=== PATIENT | female | born 1960 | race Caucasian/White ===

== ENCOUNTER 2017-02-12 23:29 | Emergency (ER) | payer OTHER ==
[2017-02-12] MEDS ORDERED: DIPH,PERTUS(ACELL)TETVAC-LF 0.5 ML VIAL IM ONE (23:53)
--- NOTE | 2017-02-13 00:05 | ED ---
General Adult HPI - General Chief complaint: Psychiatric Symptoms Stated complaint: Mental Health Time Seen by Provider: 02/12/17 23:50 Source: patient, EMS, RN notes reviewed Mode of arrival: EMS - History of Present Illness Initial comments: 56-year-old female presents for evaluation of suicide ideation and attempt. Patient has past medical history of depression, she's admits to drinking alcohol this evening, she cut her left wrist with a serrated steak knife. According to EMS there was approximately 2-300 mL of blood on scene. Patient has past medical history of hypertension. Patient denies any other injury. She denies any substance ingestion and suicide attempt. Patient does have a psychiatrist and therapist. She has never been admitted for psychiatric purposes before. She is complaining of pain in her left wrist, no other physical complaints. Patient's tetanus status is unknown. - Related Data Home Medications Medication Instructions Recorded Confirmed Butalbital/Aspirin/Caffeine 02/12/17 [Bazsnp-Plnaeme-Ubqtjmkn 50-325-40 mg] Docusate [Colace] 100 mg PO DAILY 02/12/17 02/12/17 Ergocalciferol (Vitamin D2) 50,000 unit PO 02/12/17 [Vitamin D2] Ferrous Sulfate [Iron] 325 mg PO 02/12/17 Venlafaxine HCl ER [Effexor Xr] 150 mg PO DAILY 02/12/17 02/12/17 amLODIPine [Norvasc] 10 mg PO DAILY 02/12/17 02/12/17 Allergies Allergy/AdvReac Type Severity Reaction Status Date / Time No Known Allergies Allergy Verified 02/12/17 23:41 Review of Systems ROS Statement: Those systems with pertinent positive or pertinent negative responses have been documented in the HPI. ROS Other: All systems not noted in ROS Statement are negative. Past Medical History Past Medical History: Hypertension Additional Past Medical History / Comment(s): migraines, anemia History of Any Multi-Drug Resistant Organisms: None Reported Past Surgical History: Hysterectomy, Orthopedic Surgery Additional Past Surgical History / Comment(s): ectopic . Past Psychological History: Depression Smoking Status: Current every day smoker Past Alcohol Use History: Occasional Past Drug Use History: None Reported General Exam General appearance: alert, in no apparent distress Head exam: Present: atraumatic, normocephalic Eye exam: Present: normal appearance, PERRL ENT exam: Present: normal exam Neck exam: Present: normal inspection. Absent: tenderness, meningismus Respiratory exam: Present: normal lung sounds bilaterally. Absent: respiratory distress Cardiovascular Exam: Present: regular rate, normal rhythm GI/Abdominal exam: Present: soft. Absent: distended, tenderness Extremities exam: Present: other (5 cm laceration on the palmar surface distal left forearm, palpable radial pulse, cap refill less than 1 second in all 5 digits, there is venous oozing, and multiple tendon laceration.) Neurological exam: Present: alert, oriented X3, CN II-XII intact. Absent: motor sensory deficit Psychiatric exam: Present: normal affect, normal mood Skin exam: Present: warm, dry Course Vital Signs 02/12/17 02/13/17 23:35 02:03 Temperature 97.3 F L Pulse Rate 60 72 Respiratory 16 18 Rate Blood Pressure 92/44 119/76 O2 Sat by Pulse 97 97 Oximetry Procedures - Laceration Laceration #1 Consent Obtained: verbal consent Time Out Performed: Yes Indication: laceration Site: upper extremity Description: linear, clean Depth: involves muscle layer, involves tendon Anesthetic Used: lidocaine 1% Anesthesia Technique: local infiltration Amount (mls): 3 Pre-repair: wound explored, irrigated extensively Type of Sutures: nylon Size of Sutures: 4-0 Number of Sutures: 3 Technique: simple, interrupted Patient Tolerated Procedure: well Additional Comments: Wound was loosely approximated with nylon suture, underlying tendons not repaired. Medical Decision Making - Medical Decision Making 56-year-old female presenting with suicide attempt and left forearm laceration with a steak knife. Initial evaluation, patient has a proximally 5 cm laceration on the palmar surface of the distal forearm, no underlying arterial injury, palpable radial pulse. There is multiple tendon injuries. Tendon injuries appear to be to the superficial flexor tendons. The proximal portion of the tendon is not visible on examination. Patient's tetanus is updated, she is given 1 g of Ancef. Skin is loosely approximated with nylon suture x 3. Dressing is applied and splint applied. Case is discussed with orthopedics Dr. Ernandez, he recommends transfer for hand surgery evaluation. Patient will be transferred to [facility] in [place] accepting doctor Dr. Cheng. Patient will also require psychiatric evaluation. Diagnosis: Suicide attempt, left distal forearm laceration with multiple tendon lacerations. - Lab Data Result diagrams: 02/13/17 02:38 12/31/17 02:38 Lab Results 02/13/17 02/13/17 02/13/17 Range/Units 02:00 02:38 02:38 WBC 9.6 (3.8-10.6) k/uL RBC 3.36 L (3.80-5.40) m/uL Hgb 11.3 L (11.4-16.0) gm/dL Hct 34.7 (34.0-46.0) % MCV 103.5 H (80.0-100.0) fL MCH 33.7 (25.0-35.0) pg MCHC 32.6 (31.0-37.0) g/dL RDW 12.7 (11.5-15.5) % Plt Count 177 (150-450) k/uL Neutrophils % 87 % Lymphocytes % 8 % Monocytes % 3 % Eosinophils % 0 % Basophils % 0 % Neutrophils # 8.4 H (1.3-7.7) k/uL Lymphocytes # 0.8 L (1.0-4.8) k/uL Monocytes # 0.3 (0-1.0) k/uL Eosinophils # 0.0 (0-0.7) k/uL Basophils # 0.0 (0-0.2) k/uL Macrocytosis Slight PT (9.0-12.0) sec INR (<1.2) APTT (22.0-30.0) sec Sodium 137 (137-145) mmol/L Potassium 4.3 (3.5-5.1) mmol/L Chloride 104 (98-107) mmol/L Carbon Dioxide 27 (22-30) mmol/L Anion Gap 6 mmol/L BUN 12 (7-17) mg/dL Creatinine 0.70 (0.52-1.04) mg/dL Est GFR (MDRD) Af Amer >60 (>60 ml/min/1.73 sqM) Est GFR (MDRD) Non-Af >60 (>60 ml/min/1.73 sqM) Glucose 111 H (74-99) mg/dL Calcium 9.1 (8.4-10.2) mg/dL Total Bilirubin <0.1 L (0.2-1.3) mg/dL AST 35 (14-36) U/L ALT 45 (9-52) U/L Alkaline Phosphatase 74 (38-126) U/L Total Protein 5.7 L (6.3-8.2) g/dL Albumin 3.5 (3.5-5.0) g/dL Urine Opiates Screen Not Detected (NotDetected) Ur Oxycodone Screen Not Detected (NotDetected) Urine Methadone Screen Not Detected (NotDetected) Ur Propoxyphene Screen Not Detected (NotDetected) Ur Barbiturates Screen Detected H (NotDetected) U Tricyclic Antidepress Not Detected (NotDetected) Ur Phencyclidine Scrn Not Detected (NotDetected) Ur Amphetamines Screen Not Detected (NotDetected) U Methamphetamines Scrn Not Detected (NotDetected) U Benzodiazepines Scrn Not Detected (NotDetected) Urine Cocaine Screen Not Detected (NotDetected) U Marijuana (THC) Screen Not Detected (NotDetected) 02/13/17 Range/Units 02:38 WBC (3.8-10.6) k/uL RBC (3.80-5.40) m/uL Hgb (11.4-16.0) gm/dL Hct (34.0-46.0) % MCV (80.0-100.0) fL MCH (25.0-35.0) pg MCHC (31.0-37.0) g/dL RDW (11.5-15.5) % Plt Count (150-450) k/uL Neutrophils % % Lymphocytes % % Monocytes % % Eosinophils % % Basophils % % Neutrophils # (1.3-7.7) k/uL Lymphocytes # (1.0-4.8) k/uL Monocytes # (0-1.0) k/uL Eosinophils # (0-0.7) k/uL Basophils # (0-0.2) k/uL Macrocytosis PT 10.5 (9.0-12.0) sec INR 1.1 (<1.2) APTT 21.5 L (22.0-30.0) sec Sodium (137-145) mmol/L Potassium (3.5-5.1) mmol/L Chloride (98-107) mmol/L Carbon Dioxide (22-30) mmol/L Anion Gap mmol/L BUN (7-17) mg/dL Creatinine (0.52-1.04) mg/dL Est GFR (MDRD) Af Amer (>60 ml/min/1.73 sqM) Est GFR (MDRD) Non-Af (>60 ml/min/1.73 sqM) Glucose (74-99) mg/dL Calcium (8.4-10.2) mg/dL Total Bilirubin (0.2-1.3) mg/dL AST (14-36) U/L ALT (9-52) U/L Alkaline Phosphatase (38-126) U/L Total Protein (6.3-8.2) g/dL Albumin (3.5-5.0) g/dL Urine Opiates Screen (NotDetected) Ur Oxycodone Screen (NotDetected) Urine Methadone Screen (NotDetected) Ur Propoxyphene Screen (NotDetected) Ur Barbiturates Screen (NotDetected) U Tricyclic Antidepress (NotDetected) Ur Phencyclidine Scrn (NotDetected) Ur Amphetamines Screen (NotDetected) U Methamphetamines Scrn (NotDetected) U Benzodiazepines Scrn (NotDetected) Urine Cocaine Screen (NotDetected) U Marijuana (THC) Screen (NotDetected) Disposition Clinical Impression: Depression, Attempted suicide, Forearm laceration involving tendon Disposition: OTHER INSTITUTION NOT DEFINED Condition: Stable Referrals: Jt Kennedy DO [Primary Care Provider] - 1-2 days Time of Disposition: 03:20 - Out of Hospital Transfer - Req. Specs Out of Hospital Transfer - Requested Specifics: Other Emergency Center ( Transferred to [facility] in [place].)
[2017-02-13] MEDS ORDERED: DIPH,PERTUS(ACELL)TETVAC-LF 0.5 ML VIAL IM ONE (00:22)
[2017-02-13] MEDS ORDERED: ceFAZolin 1,000 MG in DEXTROSE/WATER 1 50ML.BAG IVPB STA (01:15)
[2017-02-13] MEDS ORDERED: KETOROLAC 30 MG/ML 1 ML VIAL IVP STA (02:01)
[2017-02-13 02:17] LABS: Amphetamine Screen,Urine Not Detected (NotDetected); Barbiturate Screen,Urine Detected (NotDetected); Benzodiazepines Screen,Urine Not Detected (NotDetected); Cocaine Screen,Urine Not Detected (NotDetected); Methadone Screen, Urine Not Detected (NotDetected); Opiate Screen,Urine Not Detected (NotDetected); Oxycodone Screen, Urine Not Detected (NotDetected); Phencyclidine Screen,Urine Not Detected (NotDetected); Tricyclic Antidepressant,Urine Not Detected (NotDetected); Urn Cannabinoid Scrn Not Detected (NotDetected)
[2017-02-13 02:51] LABS: Basophils % (A) 0 %; Eosinophils % (A) 0 %; HCT 34.7 % (34.0-46.0); HGB 11.3 gm/dL (11.4-16.0); Lymphocytes # (A) 0.8 k/uL (1.0-4.8); Lymphocytes % (A) 8 %; MCH 33.7 pg (25.0-35.0); MCHC 32.6 g/dL (31.0-37.0); MCV 103.5 fL (80.0-100.0); Macrocytosis Slight; Monocytes # (A) 0.3 k/uL (0-1.0); Monocytes % (A) 3 %; Neutrophils # (A) 8.4 k/uL (1.3-7.7); Neutrophils % (A) 87 %; Platelet Count 177 k/uL (150-450); RBC 3.36 m/uL (3.80-5.40); RDW 12.7 % (11.5-15.5); WBC 9.6 k/uL (3.8-10.6)
[2017-02-13 02:55] LABS: INR 1.1 (<1.2); Prothrombin Time 10.5 sec (9.0-12.0)
[2017-02-13 03:05] LABS: Partial Thromboplastin Time 21.5 sec (22.0-30.0)
[2017-02-13 03:21] LABS: ALT 45 U/L (9-52); AST 35 U/L (14-36); Albumin 3.5 g/dL (3.5-5.0); Alkaline Phosphatase 74 U/L (38-126); Anion Gap 6 mmol/L; Blood Urea Nitrogen 12 mg/dL (7-17); Calcium 9.1 mg/dL (8.4-10.2); Carbon Dioxide 27 mmol/L (22-30); Chloride 104 mmol/L (98-107); Glucose 111 mg/dL (74-99); Sodium 137 mmol/L (137-145); Total Bilirubin <0.1 mg/dL (0.2-1.3); Total Protein 5.7 g/dL (6.3-8.2)
[2017-02-13 03:41] LABS: Potassium 4.3 mmol/L (3.5-5.1)
[2017-02-13 03:49] VITALS: BP 117/68; PULSE 73; RESP 16; TEMP 97.9
== END 2017-02-13 04:13 | disposition other institution (70) ==
LOC: EC 23:29
DX: S51.812A Laceration without foreign body of left forearm, initial encounter (principal); F32.9 Major depressive disorder, single episode, unspecified; R45.851 Suicidal ideations; I10 Essential (primary) hypertension; F17.200 Nicotine dependence, unspecified, uncomplicated; Z79.899 Other long term (current) drug therapy; Z23 Encounter for immunization; X78.1XXA Intentional self-harm by knife, initial encounter
CPT/HCPCS: 99285; 12002; 96365; 96375; 90471; 82075; 36415; 80053; 85025; 85610; 85730; 80306; 90715; J1885; J0690

== ENCOUNTER 2017-02-13 18:20 | Inpatient (IN) | payer OTHER ==
--- NOTE | 2017-02-13 19:09 | ED ---
Psych HPI - General Chief Complaint: Psychiatric Symptoms Stated Complaint: Mental health Time Seen by Provider: 02/13/17 18:27 Source: patient Mode of arrival: ambulatory - History of Present Illness Initial Comments: This is a 56-year-old female with a history of depression who presents emergency Department after being discharged from [facility]. The patient presented here last night because of suicidal ideation attempting to slit her wrists. She was admitted here in to the psychiatric unit however and decided this morning to have her sent to [facility] for repair of tendons in her wrist. The patient was discharged after having a pair. The family did not feel that she was safe to be at home since they brought her back here. The patient currently denies any suicidal ideation. She reports that she was evaluated by psychiatry at [facility] however the family member at bedside does not believe this. Patient has no physical complaints except for a sore wrist. - Related Data Home Medications Medication Instructions Recorded Confirmed Docusate [Colace] 100 mg PO BID PRN 02/13/17 02/13/17 Ergocalciferol [Vitamin D2] 50,000 unit PO Q7D 02/13/17 02/13/17 Ferrous Sulfate [Feosol] 325 mg PO DAILY 02/13/17 02/13/17 Venlafaxine HCl [Effexor XR] 150 mg PO DAILY 02/13/17 02/13/17 amLODIPine [Norvasc] 10 mg PO DAILY 02/13/17 02/13/17 Allergies Allergy/AdvReac Type Severity Reaction Status Date / Time No Known Allergies Allergy Verified 02/13/17 19:07 Review of Systems ROS Statement: Those systems with pertinent positive or pertinent negative responses have been documented in the HPI. ROS Other: All systems not noted in ROS Statement are negative. Past Medical History Past Medical History: Hypertension Additional Past Medical History / Comment(s): migraines History of Any Multi-Drug Resistant Organisms: None Reported Past Surgical History: Hysterectomy, Tubal Ligation Past Psychological History: Anxiety, Depression Smoking Status: Current every day smoker Past Alcohol Use History: Occasional Past Drug Use History: None Reported General Exam - General Exam Comments Initial Comments: Constitutional: Awake alert Appears comfortable Head: Normocephalic atraumatic Eyes: no conjunctival injection No scleral icterus EOMI Neck: No JVD Supple Heart: Regular rate rhythm normal S1-S2 no murmurs Lungs: Clear to auscultation bilaterally No wheezing No rales Abdomen: Soft nondistended nontender Extremities: Non edematous DP pulses intact Radial pulses intact bandage clean dry and intact to the left wrist Neuro: A&Ox3 No focal neurologic deficits Psych: Appropriate mood and affect Limitations: no limitations Course Vital Signs 02/13/17 18:27 Temperature 98.7 F Pulse Rate 73 Respiratory 18 Rate Blood Pressure 158/88 O2 Sat by Pulse 100 Oximetry Medical Decision Making - Medical Decision Making This 56-year-old female who presents emergency Department after slitting her wrists the day prior. Patient was evaluated by EPS and deemed to be required to have inpatient psychiatric treatment. The patient is currently medically stable for admission. Admission orders per EPS. - Lab Data Lab Results 02/13/17 Range/Units 19:54 Urine Color Light Yellow Urine Appearance Clear (Clear) Urine pH 5.5 (5.0-8.0) Ur Specific [place] 1.010 (1.001-1.035) Urine Protein Negative (Negative) Urine Glucose (UA) Negative (Negative) Urine Ketones Trace H (Negative) Urine Blood Negative (Negative) Urine Nitrite Negative (Negative) Urine Bilirubin Negative (Negative) Urine Urobilinogen <2.0 (<2.0) mg/dL Ur Leukocyte Esterase Negative (Negative) Urine Opiates Screen Detected H (NotDetected) Ur Oxycodone Screen Not Detected (NotDetected) Urine Methadone Screen Not Detected (NotDetected) Ur Propoxyphene Screen Not Detected (NotDetected) Ur Barbiturates Screen Detected H (NotDetected) U Tricyclic Antidepress Not Detected (NotDetected) Ur Phencyclidine Scrn Not Detected (NotDetected) Ur Amphetamines Screen Not Detected (NotDetected) U Methamphetamines Scrn Not Detected (NotDetected) U Benzodiazepines Scrn Not Detected (NotDetected) Urine Cocaine Screen Not Detected (NotDetected) U Marijuana (THC) Screen Not Detected (NotDetected) Disposition Clinical Impression: Attempted suicide Disposition: ADMITTED IP TO THIS [facility] Condition: Stable
[2017-02-13] MEDS ORDERED: HYDROcodone/APAP 5-325MG 1 EACH TAB PO STA (20:05)
[2017-02-13 20:10] LABS: Appearance,Urine Clear (Clear); Bilirubin,Urine Negative (Negative); Blood,Urine Negative (Negative); Color,Urine Light Yellow; Glucose,Urine (UA) Negative (Negative); Ketones,Urine Trace (Negative); Leukocyte Esterase,Urine Negative (Negative); Nitrite,Urine Negative (Negative); PH, Urine 5.5 (5.0-8.0); Protein,Urine Negative (Negative); Urobilinogen,Urine <2.0 mg/dL (<2.0)
[2017-02-13 20:29] LABS: Amphetamine Screen,Urine Not Detected (NotDetected); Barbiturate Screen,Urine Detected (NotDetected); Benzodiazepines Screen,Urine Not Detected (NotDetected); Cocaine Screen,Urine Not Detected (NotDetected); Methadone Screen, Urine Not Detected (NotDetected); Opiate Screen,Urine Detected (NotDetected); Oxycodone Screen, Urine Not Detected (NotDetected); Phencyclidine Screen,Urine Not Detected (NotDetected); Tricyclic Antidepressant,Urine Not Detected (NotDetected); Urn Cannabinoid Scrn Not Detected (NotDetected)
[2017-02-13] MEDS ORDERED: CEPHALEXIN 250 MG CAP PO STA (20:46)
[2017-02-13] MEDS ORDERED: MAGNESIUM HYDROXIDE 2,400 MG/10 ML CUP PO PRN (22:44)
[2017-02-13] MEDS ORDERED: ACETAMINOPHEN TAB 325 MG TAB PO PRN (22:44)
[2017-02-13] MEDS ORDERED: MAG HYDROX/AL HYDROX/SIMETH 30 ML CUP PO PRN (22:44)
[2017-02-13] MEDS ORDERED: DOCUSATE 100 MG CAP PO PRN (22:47)
[2017-02-14] MEDS: LORazepam 1 MG TAB PO PRN (04:51)
[2017-02-14 07:51] LABS: Basophils % (A) 0 %; Eosinophils # (A) 0.2 k/uL (0-0.7); Eosinophils % (A) 3 %; HCT 33.7 % (34.0-46.0); HGB 10.9 gm/dL (11.4-16.0); Lymphocytes # (A) 0.9 k/uL (1.0-4.8); Lymphocytes % (A) 17 %; MCH 33.8 pg (25.0-35.0); MCHC 32.3 g/dL (31.0-37.0); MCV 104.6 fL (80.0-100.0); Macrocytosis Slight; Mean Platelet Volume 7.1; Monocytes # (A) 0.2 k/uL (0-1.0); Monocytes % (A) 4 %; Neutrophils % (A) 74 %; Platelet Count 163 k/uL (150-450); RBC 3.22 m/uL (3.80-5.40); WBC 5.4 k/uL (3.8-10.6)
[2017-02-14 08:43] LABS: Anion Gap 3 mmol/L; Blood Urea Nitrogen 10 mg/dL (7-17); Calcium 9.9 mg/dL (8.4-10.2); Carbon Dioxide 29 mmol/L (22-30); Chloride 107 mmol/L (98-107); Cholesterol 193 mg/dL (<200); Glucose 98 mg/dL (74-99); HDL Cholesterol 83 mg/dL (40-60); LDL Cholesterol,Calculated 89 mg/dL (0-99); Potassium 4.2 mmol/L (3.5-5.1); Sodium 139 mmol/L (137-145); Triglycerides 106 mg/dL (<150)
[2017-02-14] MEDS ORDERED: VENLAFAXINE HCL ER 150 MG CAP PO SCH (09:00)
[2017-02-14] MEDS: amLODIPine 10 MG TAB PO SCH (09:29)
[2017-02-14] MEDS: NICOTINE 14MG/24HR PATCH TRANSDERM SCH (09:30)
[2017-02-14] MEDS ORDERED: VENLAFAXINE HCL ER 75 MG CAP PO STA (10:38)
[2017-02-14] MEDS: FERROUS SULFATE 325 MG TAB PO SCH (10:43)
[2017-02-14] MEDS: CEPHALEXIN 250 MG CAP PO SCH ×4 (10:43→21:28)
[2017-02-14] MEDS: HYDROcodone/APAP 5-325MG 1 EACH TAB PO PRN ×2 (13:35→22:14)
[2017-02-14 18:00] LABS: Hemoglobin A1C 5.1 % (4.0-6.0)
--- NOTE | 2017-02-15 08:31 | HP ---
HISTORY AND PHYSICAL DATE OF SERVICE: 02/14/2017 IDENTIFYING DATA: The patient is a 56-year-old female. She lives independently. She was admitted through the emergency room. CHIEF COMPLAINT: The patient was depressed. She apparently had made some indication of thoughts of killing herself. She had acting-out behavior of cutting her left wrist quite deeply. HISTORY OF PRESENT ILLNESS: The patient has not had a prior psychiatric hospitalization. She said that she got into quite a bit of distress over a situation with her significant other. The two of them had been together for 3 years. He was indicating planning to end the relationship. They made a determination in October based on what he said that the relationship had ended. They continue to live together until just recently. The patient said that she had an impulse of feeling very distressed and wanting to take out anger on this person. She said on the spur of the moment she took a sharp knife and cut her left wrist, apparently down to tendons. She ended up having a transfer to [facility] for surgery. Apparently she had received psychiatric evaluation there with recommendation for outpatient follow up. Her daughter was concerned about her level of depression and brought her to the hospital. The patient acknowledges that she has had down mood and distress going back to October in terms of this relationship. She said some of the issue has been complicated by the business yet that she has had to attend to. She has 2 horses, which she has had for a number of years. The horses were at the home that she was living at. She has had to make arrangements to sell the horses, which was very difficult for her. She has just found a place to live and has moved into an apartment. 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 In addition, she acknowledges grief issues in that this is the first anniversary of her mother's passing. Her mother around 2015. She has been on Effexor XR 150 mg for "a couple years". She says it was prescribed for migraines. She said she really has not recognized any history of depression in her past. She notes that she has had migraines over 20 years and that in a neurologic evaluation, it was recommended that the trial of the Effexor was recommended. She says that currently she has been sleeping fairly well. She has been in counseling intermittently by Doreen in a community center. She has not had any other past mental health intervention. She acknowledges that she likely has some depression relating to the events, though she feels overall that she is functioning fairly well in spite of some of the stress she is under. Currently, her only psychotropic medication is Effexor XR 150 mg a day. She is admitted for further evaluation. SUBSTANCE USE HISTORY: Unremarkable by patient report. PAST MEDICAL HISTORY: Patient currently has a left forearm laceration with surgical repair that is a current issue. She has a history of migraine headaches and hypertension. Further medical history and review of systems as per medical consultation. FAMILY AND SOCIAL HISTORY: The patient notes that she works part-time in an office of an senior electrical designer. She was for over 30 years and in 2013. She said the basis of the divorce was that she and her were very busy with different lives and they were not able to maintain a solid relationship. She has 2 children, ages 37 and 24, both within the marriage she had. As noted, she has had long-term involvement in having horses for trail riding, though she is a currently needing to sell the horses because of her ending a relationship. PHYSICAL EXAM: As per medical consultation. MENTAL STATUS EXAM: Patient was somewhat restless. She gave good eye contact. Thoughts were clear. She answered questions with direct responses. She was somewhat spontaneous and interactive. Her affect was blunted. Her mood reserved. She did show some appropriate emotional reactivity. She was cooperative in the interview. She had a somewhat down mood, though she did not appear to be significantly distressed. There was no indication of thought disorder. On cognitive exam, she was oriented x3 and alert. Recent remote memory was intact. Attention and concentration fair. She could spell world forward and backwards. She did adequate calculations. Insight and judgment were fair. Fund of knowledge and intellectual level average. ASSESSMENT: This 56-year-old female is diagnosed with major depression. She has a number of ongoing stress issues including a recent breakup of a relationship and relocation. She has also had to deal with some significant complications of the separation. Strengths include that she has had fairly good independent functioning and has been able to maintain a stable life style. Weakness includes struggles with underlying emotional function. DIAGNOSES: 1. Major depression. 2. Self-inflicted wound to left wrist. 3. Hypertension. 4. Migraine headaches. RECOMMENDATIONS: Patient will be admitted for comprehensive medical psychiatric and psychosocial evaluation. We will engage the patient in individual and group therapeutic activities. I discussed treatment options with the patient. At this point, she is willing to give a trial of an increase in Effexor, will go up to 225 mg a day. Effexor is her only psychotropic medication. We will focus on stabilization and discharge planning. CLARISSA / LAKESHIA: [id number] /
--- NOTE | 2017-02-15 08:52 | CONS ---
CONSULTATION DATE OF CONSULTATION: 02/14/2017 REASON FOR CONSULTATION: Advice regarding hypertension, migraine, anxiety requested by Psychiatry. HISTORY OF PRESENT ILLNESS: This is a 56-year-old woman with a past medical history of hypertension, migraine, anxiety, depression admitted for psychiatric evaluation. Patient has self-inflicted wound on the left wrist which was sutured. The patient also had a fracture on the right hand which a cast was applied and now the patient is on splint. There is no history of any fever, rigors or chills. No history of headache, loss of conscious or seizures. The patient has been to [facility] previously. PAST MEDICAL HISTORY: Hypertension, migraines, hysterectomy, anxiety, depression. MEDICATIONS: Prior to admission include: 1. Norvasc 10 mg. 2. Colace 100 mg b.i.d. 3. Effexor XR 150 mg b.i.d. 4. Aspirin 320 mg daily. 5. Vitamin D2 2000 q7 days. ALLERGIES: None. FAMILY HISTORY: No history of heart disease or strokes in the family. SOCIAL HISTORY: History of smoking every day. No history of alcohol intake. REVIEW OF SYSTEMS: ENT: No diminished hearing or vision. Cardiovascular: No angina. Respiration: No cough. GI no nausea. no dysuria. Nervous systems: No numbness, weakness. Musculoskeletal: As mentioned earlier. [id number]/Oncology: No history of anemia. Endocrine: No history of diabetes or hypothyroidism. Constitutional: As mentioned earlier. Dermatology: Negative. Rheumatology: Negative. Psychiatric: As mentioned earlier. PHYSICAL EXAMINATION: Alert and oriented x3. Pulse 81, blood pressure 168/70, temperature 98.2, pulse ox 98% on room air. HEENT: Conjunctivae normal. Oral mucosa moist. Neck is no jugular venous distention. No carotid bruit. No lymph node enlargement. Cardiovascular: S1, S2 normal. No S3, no S4. RESPIRATORY: Breath sounds diminished in the bases. No rhonchi and no crackles. ABDOMEN: Soft, nontender. No mass palpable. Legs: No edema and no swelling. NERVOUS SYSTEM: Higher functions as mentioned. Cranial 2nd to 12 grossly intact. Moves all 4 limbs. No focal motor deficits. Lymphatics: No lymph nodes palpable in the neck, axillae or groin. Skin: Skin lacerations which was sutured on the left forearm status post splint on the right hand as mentioned. Gait normal. LABS: WBC 5, hemoglobin 10.9, UA noted and drug screen noted. ASSESSMENT: 1. Status post left lacerated wound on the left forearm status post suturing. 2. Anemia macrocytic for evaluation. 3. Hypertension. 4. Migraine. 5. History of anxiety, depression. 6. History nicotine dependence. RECOMMENDATIONS AND DISCUSSION: In this 56-year-old woman who presented with multiple medical issues, at this time I recommend to continue current medications, management and symptomatic and recommend resume the home medications and I would also recommend local care for the wound. The wound appears to be healthy at this time, I would recommend suture removal after 10 days. Closely follow with the primary physician with a followup CBC. We will follow the patient closely. Thank you Dr. Flores for letting us participate in the care of this patient. CLARISSA / LAKESHIA: [id number] /
[2017-02-15] MEDS: CEPHALEXIN 250 MG CAP PO SCH ×4 (08:56→21:24)
[2017-02-15] MEDS: VENLAFAXINE HCL ER 75 MG CAP PO SCH (08:56)
[2017-02-15] MEDS: amLODIPine 10 MG TAB PO SCH (08:56)
[2017-02-15] MEDS: NICOTINE 14MG/24HR PATCH TRANSDERM SCH (08:56)
[2017-02-15] MEDS: HYDROcodone/APAP 5-325MG 1 EACH TAB PO PRN ×2 (08:56→17:13)
[2017-02-15] MEDS: IBUPROFEN 600 MG TAB PO PRN (10:53)
[2017-02-15] MEDS: FERROUS SULFATE 325 MG TAB PO SCH (12:34)
--- NOTE | 2017-02-15 18:23 | P.PN ---
Progress Note - Text Date of service: 02/15/2017 Chief complaint: "I'm still crying " Subjective: The patient has been seen today as follow-up, chart reviewed, case discussed with the treatment team. Patient slept about more than 6 hours last night. Patient has been intermittently going to groups and other unit activities. Patient reports fair appetite problems. Patient reported still has crying spells, and feeling emotionally overwhelmed with flush of emotions. She addressed for feeling guilt about what she did to herself. Generally she tried to minimize depression and anxiety symptoms but apparently she is very evasive about her depression and anxiety symptoms. She denies having any hallucination or psychotic symptoms, and she denies any manic symptoms. She denies any suicidal or homicidal thoughts. The patient is compliant with her medications and denies any adverse reactions. Review of other systems: Patient denies any physical symptoms besides what has been mentioned above. No breathing problems, no chest pain reported today. Objective: Vitals has been reviewed. Mental status examination; Appearance: The patient appears stated age, adequately groomed and dressed, bandage around her left wrist. Gait/posture: Normal gait, Normal arm swinging: No abnormal movements. Attitude and behavior: Guarded, superficial, with intermittent eye contact. Motor activity: Normal psychomotor activity Speech: Soft and slow Mood: Anxious Affect: Constricted Thought form: goal-directed, linear, coherent. Thought content: Non-delusional, denies suicidal thoughts, denies homicidal thoughts, denies intentions or plans. Perception: Denies any auditory or visual hallucinations Attention: No impairment. Patient was able to repeat serial 5. Orientation: Patient patient was fully oriented to time place person and situation. Insight: Patient has limited insight about his psychiatric disorder. Judgment: Patient has limited judgment about his psychiatric treatment. Assessment: Unspecified depression Rule out major depressive disorder, severe without psychotic features Plan: Continue with inpatient psychiatric hospitalization for monitoring and continue treatment. Continue group therapy and other unit activities. Continue psychiatric medications: Continue Effexor as an antidepressant
[2017-02-15] MEDS: LORazepam 1 MG TAB PO PRN (21:24)
[2017-02-16] MEDS: CEPHALEXIN 250 MG CAP PO SCH ×4 (08:13→21:26)
[2017-02-16] MEDS: VENLAFAXINE HCL ER 75 MG CAP PO SCH (08:13)
[2017-02-16] MEDS: amLODIPine 10 MG TAB PO SCH (08:13)
[2017-02-16] MEDS: NICOTINE 14MG/24HR PATCH TRANSDERM SCH (08:15)
[2017-02-16] MEDS: HYDROcodone/APAP 5-325MG 1 EACH TAB PO PRN ×2 (09:45→18:38)
[2017-02-16] MEDS: FERROUS SULFATE 325 MG TAB PO SCH (12:01)
--- NOTE | 2017-02-16 15:54 | P.PN ---
Progress Note - Text Date of service: 02/16/2017 Chief complaint: "I'm feeling better " Subjective: The patient has been seen today as follow-up, chart reviewed, case discussed with the treatment team. Patient slept about [place] and 8 hours last night. Patient has been going to groups and other unit activities. Patient reports fair appetite problems. Patient reported feeling more stability in regarding her mood and he denies depression symptoms. She reported has been learning a lot from the groups and develop more coping skills. She minimizes anxiety and denies any suicidal or homicidal thoughts. Patient denies any psychotic or manic symptoms. Patient stated that she is planning to continue counseling and therapy after discharge. The patient is compliant with her medications and denies any adverse reactions. Review of other systems: Patient denies any physical symptoms besides what has been mentioned above. No breathing problems, no chest pain reported today. Objective: Vitals has been reviewed. Mental status examination; Appearance: The patient appears stated age, adequately groomed and dressed, bandage around her left wrist. Gait/posture: Normal gait, Normal arm swinging: No abnormal movements. Attitude and behavior: Guarded, superficial, with intermittent eye contact. Motor activity: Normal psychomotor activity Speech: Soft and slow Mood: Anxious Affect: Constricted Thought form: goal-directed, linear, coherent. Thought content: Non-delusional, denies suicidal thoughts, denies homicidal thoughts, denies intentions or plans. Perception: Denies any auditory or visual hallucinations Attention: No impairment. Patient was able to repeat serial 5. Orientation: Patient patient was fully oriented to time place person and situation. Insight: Patient has limited insight about his psychiatric disorder. Judgment: Patient has limited judgment about his psychiatric treatment. Assessment: Unspecified depression Rule out major depressive disorder, severe without psychotic features Plan: Continue with inpatient psychiatric hospitalization for monitoring and continue treatment. Continue group therapy and other unit activities. Continue psychiatric medications: Effexor for depression and anxiety symptoms
[2017-02-16] MEDS: LORazepam 1 MG TAB PO PRN (21:27)
[2017-02-17] MEDS: VENLAFAXINE HCL ER 75 MG CAP PO SCH (08:20)
[2017-02-17] MEDS: amLODIPine 10 MG TAB PO SCH (08:20)
[2017-02-17] MEDS: NICOTINE 14MG/24HR PATCH TRANSDERM SCH (08:20)
[2017-02-17] MEDS: CEPHALEXIN 250 MG CAP PO SCH ×4 (08:20→21:36)
[2017-02-17] MEDS: HYDROcodone/APAP 5-325MG 1 EACH TAB PO PRN ×2 (08:58→20:21)
[2017-02-17] MEDS: LORazepam 1 MG TAB PO PRN ×2 (10:30→17:41)
[2017-02-17] MEDS: FERROUS SULFATE 325 MG TAB PO SCH (12:45)
--- NOTE | 2017-02-17 13:28 | P.PN ---
Progress Note - Text Date of service: 02/17/2017 Chief complaint: "I'm feeling very good " Subjective: The patient has been seen today as follow-up, chart reviewed, case discussed with the treatment team. Patient slept about more than 8 hours last night. Patient has been going to groups and other unit activities. Patient reports fair appetite problems. The patient reported has been feeling more improvement with clear mind and he denies any suicidal or homicidal thoughts. She denies depression and he greatly minimized and anxiety. She denies any manic or psychotic symptoms. She reported feeling ready to move on and continue her treatment as an outpatient. We discussed discharge tomorrow. The patient is compliant with her medications and denies any adverse reactions. Review of other systems: Patient denies any physical symptoms besides what has been mentioned above. No breathing problems, no chest pain reported today. Objective: Vitals has been reviewed. Mental status examination; Appearance: The patient appears stated age, adequately groomed and dressed, bandage around her left wrist. Gait/posture: Normal gait, Normal arm swinging: No abnormal movements. Attitude and behavior: Guarded, superficial, with intermittent eye contact. Motor activity: Normal psychomotor activity Speech: Soft and slow Mood: "good" Affect: Constricted Thought form: goal-directed, linear, coherent. Thought content: Non-delusional, denies suicidal thoughts, denies homicidal thoughts, denies intentions or plans. Perception: Denies any auditory or visual hallucinations Attention: No impairment. Patient was able to repeat serial 5. Orientation: Patient patient was fully oriented to time place person and situation. Insight: Patient has fair insight and judgment about his psychiatric disorder and treatment. Assessment: Unspecified depression Rule out major depressive disorder, severe without psychotic features Plan: Continue with inpatient psychiatric hospitalization for monitoring and continue treatment. Continue group therapy and other unit activities. Continue psychiatric medications: Effexor for depression and anxiety symptoms Discharge planning is ongoing
[2017-02-17] MEDS: IBUPROFEN 600 MG TAB PO PRN (17:41)
[2017-02-18 06:57] VITALS: TEMP 98.6
[2017-02-18] MEDS: VENLAFAXINE HCL ER 75 MG CAP PO SCH (08:13)
[2017-02-18] MEDS: amLODIPine 10 MG TAB PO SCH (08:13)
[2017-02-18] MEDS: CEPHALEXIN 250 MG CAP PO SCH (08:13)
[2017-02-18] MEDS: NICOTINE 14MG/24HR PATCH TRANSDERM SCH (08:13)
[2017-02-18] MEDS: HYDROcodone/APAP 5-325MG 1 EACH TAB PO PRN (08:14)
[2017-02-18 08:21] VITALS: BP 123/86; PULSE 91; RESP 17
[2017-02-18] MEDS ORDERED: ERGOCALCIFEROL 50,000 UNIT CAP PO SCH (12:00)
--- NOTE | 2017-02-18 16:50 | P.DS ---
Providers Date of admission: 02/13/17 22:25 Expected date of discharge: 02/18/17 Attending physician: Cristian Flores Consults: 02/13/17 22:44 Consult Physician Routine Consulting Provider: Pedro Estrada Consult Reason/Comments: H and p, pt also has severe laceration on arm from SIB Do you want consulting provider notified?: Yes, Notify in am Primary care physician: Jt Kennedy Hospital Course: Hospital Course: Identifying information/background information/hospital course: The patient is 56-year-old female who lives independently and was admitted to the psychiatric unit after she presented to the emergency room reported increased depression and indicated thoughts of killing herself and she had acting out behavior by cutting her left wrist quite deeply. The patient has no prior psychiatric hospitalization and she reported that she has been distressed over situation with her significant other. The significant other was indicating planning to end the relationship and the patient became very angry. The patient brought the knife and cut her left wrist down to the tendons. Patient has been transferred to [facility] for surgery. After psychiatric evaluation at [facility], it has been recommended to be admitted to psychiatric unit anxious was transferred to our service. The patient also endorses some grief issues related to her mother who a year ago. Patient has been maintained on psychiatric medication Effexor as an outpatient before admission and she was in one 50 mg daily dose. The patient has been admitted since 02/13/2017, and she was started on psychotropic medication as per home medication Effexor and the dose has been increased to 225 mg daily. The medication doses has been adjusted to optimize the stability of the psychiatric symptoms including depression and anxiety symptoms. The patient was admitted for a safe and supportive environment. A psychiatric, medical, and psychosocial evaluations were done on admission. Medications were initiated, monitored and adjusted. The patients hospital stay is unremarkable. Patient did not exhibit any aggression towards herself or others during her hospitalization. The patient attended all her groups and was compliant with her medications. Patient got along with her peers and with staff. He was subsequently discharged stable and appropriate to continue treatment on an outpatient basis. Mental status examination on discharge: The patient is alert, oriented, pleasant, and cooperative. The patient has good eye contact. The patient is dressed appropriately in casual attire. The patient has appropriate hygiene and grooming. The patient has normal gait. She has normal speech. She reports improved mood. The patient has appropriate and congruent affect. Patient has a reactive affect. Patient has no thoughts to harm herself or others. Patient is not experiencing any hallucinations. Patient is not delusional. The patient has good insight and judgment. She is not a danger to herself or others. The patient has fair fund of knowledge and average intellectual function. Discharge diagnoses: major depressive disorder, severe without psychotic features Plan: Patient will continue follow-up at-. As per discharge plan Continue the following medications: As per discharge plan Last Lab obtained on admission CBC CMP, lipid panel B12, folate level, and TSH : All within normal level sites low hemoglobin 10.9 UDS at admission positive for opiate and barbiturates which most probably has been given to the patient at her prior hospitalization Patient Condition at Discharge: Stable Patient will be discharge to her home with the care of her daughter Patient Condition at Discharge: Stable Plan - Discharge Summary Discharge Rx Participant: No New Discharge Prescriptions: New amLODIPine [Norvasc] 10 mg PO DAILY tab Cephalexin [Keflex] 250 mg PO QID #12 cap Docusate [Colace] 100 mg PO BID PRN cap PRN Reason: Constipation Ergocalciferol [Vitamin D2 (DRISDOL)] 50,000 unit PO Q7D #4 cap Ferrous Sulfate [Iron (65 MG Elemental)] 325 mg PO DAILY@1200 tab Ibuprofen [Motrin] 600 mg PO TID PRN tab PRN Reason: Mild Breakthrough Pain Nicotine 14Mg/24Hr Patch [Habitrol] 1 patch TRANSDERM DAILY #30 patch Venlafaxine HCl ER [Effexor XR] 225 mg PO DAILY #90 cap.er.24h Discontinued amLODIPine [Norvasc] 10 mg PO DAILY Docusate [Colace] 100 mg PO BID PRN PRN Reason: Constipation Venlafaxine HCl [Effexor XR] 150 mg PO DAILY Ferrous Sulfate [Feosol] 325 mg PO DAILY Ergocalciferol [Vitamin D2] 50,000 unit PO Q7D Discharge Medication List Cephalexin [Keflex] 250 mg PO QID #12 cap 02/18/17 [Rx] Docusate [Colace] 100 mg PO BID PRN cap 02/18/17 [Rx] Ergocalciferol [Vitamin D2 (DRISDOL)] 50,000 unit PO Q7D #4 cap 02/18/17 [Rx] Ferrous Sulfate [Iron (65 MG Elemental)] 325 mg PO DAILY@1200 tab 02/18/17 [Rx] Ibuprofen [Motrin] 600 mg PO TID PRN tab 02/18/17 [Rx] Nicotine 14Mg/24Hr Patch [Habitrol] 1 patch TRANSDERM DAILY #30 patch 02/18/17 [ Rx] Venlafaxine HCl ER [Effexor XR] 225 mg PO DAILY #90 cap.er.24h 02/18/17 [Rx] amLODIPine [Norvasc] 10 mg PO DAILY tab 02/18/17 [Rx] Follow up Appointment(s)/Referral(s): [facility] [Outside] - 02/22/17 8:30 am (Doreen Hwang) Patient Instructions/Handouts: How to Stop Smoking (DC), Suicide Prevention for Adults (DC), Acute Wounds (DC) Activity/Diet/Wound Care/Special Instructions: pt is to follow up with [facility] Plastic and reconstructive Surgery. Schedule an appointment as soon as possible for a visit in 1 week. pt d/c'd 02-13-2017 from [facility] Follow up appointment February 23 at 2pm. [facility] Main 16th floor with Dr. Galvez. Keep all your follow up appointments. No alcohol or street drugs. No guns or weapons. Crisis line phone number [phone]. Discharge Disposition: HOME SELF-CARE
== END 2017-02-18 11:48 | disposition home or self-care (01) | DRG 885 ==
LOC: EC 18:20 → 3MHU 22:25 → MERGE 22:25 → 3MHU 02-15 14:15
PROVIDERS: ADMIT Psychiatry & Neurology Psychiatry; ATTEND Psychiatry & Neurology Psychiatry
DX: F32.2 Major depressive disorder, single episode, severe without psychotic features (principal); R45.851 Suicidal ideations; D53.9 Nutritional anemia, unspecified; F17.200 Nicotine dependence, unspecified, uncomplicated; S61.512A Laceration without foreign body of left wrist, initial encounter; F41.9 Anxiety disorder, unspecified; G43.909 Migraine, unspecified, not intractable, without status migrainosus; I10 Essential (primary) hypertension; Z79.899 Other long term (current) drug therapy; Z90.710 Acquired absence of both cervix and uterus
CPT/HCPCS: 80048; 80061; 80306; 81003; 82075; 82607; 82746; 83036; 84443; 85025; 99285